=== PATIENT | female | born 1950 | race African-American/Black ===

== ENCOUNTER 2024-03-31 20:41 | Inpatient (IN) | payer BC, MEDICAID ==
[~2024-03-31] VITALS: Ht 170.2 cm; Wt 113.4 kg
[2024-04-01 00:17] LABS: BASOPHILS % 0.7 % (0.0-2.0); CALCIUM 8.7 mg/dL (8.7-10.4); EOSINOPHILS % 0.3 % (0.0-5.0); HEMATOCRIT. 43.6 % (36.0-48.0); HEMOGLOBIN. 13.8 g/dL (12.0-16.0); LYMPHOCYTES % 9.7 % (20.0-50.0); MEAN CORPUSCULAR HGB CONC 31.7 g/dL (31.0-37.0); MEAN CORPUSCULAR VOLUME 85.2 fL (81.0-99.0); MEAN PLATELET VOLUME 10.9 fl (7.4-10.4); MONOCYTES % 9.9 % (2.0-8.0); NEUTROPHILS % 79.4 % (40.0-76.0); PLATELET 240 x1000/uL (130-400); RED BLOOD CELL COUNT 5.11 mill/uL (4.2-5.4); RED CELL DISTRIBUTION WIDTH 18.4 % (11.6-14.6); WHITE BLOOD COUNT 8.7 x1000/uL (4.5-11.0)
[2024-04-01 00:22] LABS: CREATININE 1.5 mg/dL (0.6-1.0)
[2024-04-01] MEDS: MORPHINE SULFATE 4 MG/ML INJ (FOR IV/IM USE) IV STA (00:34)
[2024-04-01] MEDS: ONDANSETRON HCL 4MG/2ML INJ IV STA (00:35)
[2024-04-01] MEDS: SODIUM ZIRCONIUM CYCLOSILICATE 10GM/PACKET PO NR ×2 (03:07→12:22)
[2024-04-01] MEDS ORDERED: ACETAMINOPHEN 325MG TABLET PO PRN (10:00)
[2024-04-01] MEDS ORDERED: CLONIDINE 0.1MG TABLET PO PRN (10:00)
[2024-04-01] MEDS ORDERED: SODIUM CHLORIDE 0.9% 250 ML IV NR (10:00)
[2024-04-01] MEDS ORDERED: IPRATROPIUM/ALBUTEROL 0.5-3(2.5)MG/3ML NEB HHN PRN (10:00)
[2024-04-01] MEDS ORDERED: DOCUSATE SODIUM 100MG CAPSULE PO PRN (10:00)
[2024-04-01] MEDS ORDERED: NALOXONE HCL 0.4MG/ML VIAL IV PRN (10:15)
[2024-04-01] MEDS ORDERED: SODIUM POLYSTYRENE SULFONATE 15 G/60 ML BOT PO ONE (10:45)
[2024-04-01] MEDS: PANTOPRAZOLE SODIUM 40 MG/VIAL IV SCH (12:01)
[2024-04-01] MEDS: HYDROCODONE/ACETAMINOPHEN 5/325MG TABLET PO PRN (12:01)
[2024-04-01 12:08] LABS: BASOPHILS % 0.7 % (0.0-2.0); DIFFERENTIAL COMMENT 0; EOSINOPHILS % 0.2 % (0.0-5.0); HEMATOCRIT. 42.4 % (36.0-48.0); HEMOGLOBIN. 12.7 g/dL (12.0-16.0); LYMPHOCYTES % 10.2 % (20.0-50.0); MEAN CORPUSCULAR HEMOGLOBIN 26.4 pg (28.0-32.0); MEAN CORPUSCULAR VOLUME 87.9 fL (81.0-99.0); MEAN PLATELET VOLUME 10.9 fl (7.4-10.4); MONOCYTES % 9.2 % (2.0-8.0); NEUTROPHILS % 79.7 % (40.0-76.0); PLATELET 202 x1000/uL (130-400); RED BLOOD CELL COUNT 4.82 mill/uL (4.2-5.4); RED CELL DISTRIBUTION WIDTH 18.7 % (11.6-14.6); WHITE BLOOD COUNT 7.6 x1000/uL (4.5-11.0)
[2024-04-01] MEDS: DEXT 5%/0.45% NACL 1000ML 1,000 ML IV SCH (12:08)
[2024-04-01 12:11] LABS: CHLORIDE 108 mEq/L (98-107); POTASSIUM 4.9 mEq/L (3.5-5.1)
[2024-04-01] MEDS: APIXABAN 5 MG TABLET PO SCH (12:11)
[2024-04-01 12:12] LABS: CALCIUM 8.4 mg/dL (8.7-10.4); CARBON DIOXIDE 22 mEq/L (21-32); SODIUM 137 mEq/L (136-145)
[2024-04-01 12:17] LABS: CREATININE 1.6 mg/dL (0.6-1.0); D-DIMER 3.42 mg/L FEU (<0.50); GLUCOSE 74 mg/dL (70-105); INR 1.2; PROTHROMBIN TIME 13.3 sec (9.6-11.0)
[2024-04-01 12:18] LABS: LDL CHOLESTEROL 108 mg/dL (5-100); TRIGLYCERIDE 126 mg/dL (0-150); UREA NITROGEN BLOOD 23 mg/dL (9-23)
[2024-04-01 12:52] LABS: ALANINE AMINOTRANSFERASE 52 IU/L (10-49); ALBUMIN 2.9 g/dL (3.2-4.8); ASPARTATE AMINOTRANSFERASE 74 IU/L (<34)
[2024-04-01 12:53] LABS: BILIRUBIN DIRECT 0.5 mg/dL (<=3.0); CHOLESTEROL 158 mg/dL (<200); HDL CHOLESTEROL 23 mg/dL (>65); PHOSPHORUS 4.8 mg/dL (2.5-4.9)
[2024-04-01 12:55] LABS: T4 FREE 0.97 ng/dL (0.89-1.76); THYROID STIMULATING HORMONE 9.36 uIU/mL (0.55-4.78)
[2024-04-01] MEDS: ONDANSETRON HCL 4MG/2ML INJ IV PRN (13:14)
[2024-04-01 13:44] VITALS: BP 94/69; PULSE 95; RESP 20; TEMP 36.6404
[2024-04-01] MEDS: MIDODRINE HCL 5MG TABLET PO SCH (14:03)
[2024-04-01 16:00] VITALS: BP 91/50; PULSE 91; RESP 17; TEMP 36.50292; O2SAT 95
[2024-04-01 17:13] LABS: CREATINE KINASE MB FRACTION 0.6 ng/mL (0.5-3.6)
[2024-04-01 17:14] LABS: ETHANOL BLOOD < 10 mg/dL (<10); TROPONIN I HIGH SENSITIVITY 34 ng/L (3.0-34)
[2024-04-01 17:15] LABS: CREATINE KINASE 32 IU/L (34-145)
[2024-04-01] MEDS: SODIUM CHLORIDE 0.9% 250 ML IV NR (17:21)
[2024-04-01 20:00] VITALS: BP 124/35; PULSE 69; RESP 18; TEMP 36.22512; O2SAT 98
[2024-04-02] VITALS: BP 130/38; PULSE 54; RESP 18; TEMP 36.33624; O2SAT 100
[2024-04-02 01:02] LABS: CREATINE KINASE MB FRACTION < 0.5 ng/mL (0.5-3.6); TROPONIN I HIGH SENSITIVITY 32 ng/L (3.0-34)
[2024-04-02 01:03] LABS: CREATINE KINASE 47 IU/L (34-145)
[2024-04-02 04:00] VITALS: BP 114/64; PULSE 91; RESP 18; TEMP 36.28068; O2SAT 96
[2024-04-02 06:45] LABS: BASOPHILS % 0.9 % (0.0-2.0); DIFFERENTIAL COMMENT 0; EOSINOPHILS % 0.3 % (0.0-5.0); HEMATOCRIT. 39.2 % (36.0-48.0); HEMOGLOBIN. 12.1 g/dL (12.0-16.0); LYMPHOCYTES % 13.4 % (20.0-50.0); MEAN CORPUSCULAR HEMOGLOBIN 26.8 pg (28.0-32.0); MEAN CORPUSCULAR HGB CONC 30.8 g/dL (31.0-37.0); MEAN CORPUSCULAR VOLUME 86.9 fL (81.0-99.0); MEAN PLATELET VOLUME 10.9 fl (7.4-10.4); MONOCYTES % 13.2 % (2.0-8.0); NEUTROPHILS % 72.2 % (40.0-76.0); PLATELET 170 x1000/uL (130-400); RED BLOOD CELL COUNT 4.51 mill/uL (4.2-5.4); RED CELL DISTRIBUTION WIDTH 18.1 % (11.6-14.6); WHITE BLOOD COUNT 6.4 x1000/uL (4.5-11.0)
[2024-04-02 06:53] LABS: CHLORIDE 107 mEq/L (98-107); POTASSIUM 4.6 mEq/L (3.5-5.1); SODIUM 136 mEq/L (136-145)
[2024-04-02 06:54] LABS: CALCIUM 8.2 mg/dL (8.7-10.4); CARBON DIOXIDE 22 mEq/L (21-32)
[2024-04-02 06:59] LABS: CREATININE 1.9 mg/dL (0.6-1.0); GLUCOSE 105 mg/dL (70-105); UREA NITROGEN BLOOD 27 mg/dL (9-23)
[2024-04-02 07:02] LABS: PHOSPHORUS 4.5 mg/dL (2.5-4.9)
[2024-04-02 08:00] VITALS: BP 100/52; PULSE 89; RESP 18; TEMP 36.16956; O2SAT 97
[2024-04-02] MEDS: MIDODRINE HCL 5MG TABLET PO SCH (08:21)
[2024-04-02 12:00] VITALS: BP 90/50; PULSE 91; RESP 19; TEMP 35.78064; O2SAT 98
[2024-04-02] MEDS: ASPIRIN 81MG TABLET PO SCH (12:56)
[2024-04-02 14:11] LABS: CLARITY URINE CLOUDY (CLEAR); COLOR URINE DARK YELLOW (YELLOW); GLUCOSE URINE 2+ (NEGATIVE); KETONES URINE NEGATIVE (NEGATIVE); LEUKOCYTE ESTERASE URINE NEGATIVE (NEGATIVE); NITRITE URINE NEGATIVE (NEGATIVE); OCCULT BLOOD URINE TRACE (NEGATIVE); PROTEIN URINE 2+ (NEGATIVE); SPECIFIC GRAVITY URINE 1.019 (1.005-1.030)
[2024-04-02 14:29] LABS: BACTERIA URINE 4+; RBC URINE 0-2 /hpf (0-2); SQUAMOUS EPITHELIAL CELL URINE 1+ /lpf (RARE/1+); YEAST URINE NONE SEEN
[2024-04-02 14:33] LABS: *AMPHETAMINES SCREEN URINE NEGATIVE (NEGATIVE); *BARBITURATES SCREEN URINE NEGATIVE (NEGATIVE); *BENZODIAZEPINES SCREEN URINE NEGATIVE (NEGATIVE); *COCAINE SCREEN URINE NEGATIVE (NEGATIVE); CANNABINOID URINE SCREEN NEGATIVE (NEGATIVE); ECSTASY MDMA SCREEN URINE NEGATIVE (NEGATIVE); METHADONE URINE SCREEN NEGATIVE (NEGATIVE); OPIATES URINE SCREEN PRESUMPTIVE POSITIVE (NEGATIVE); PHENCYCLIDINE URINE SCREEN NEGATIVE (NEGATIVE)
[2024-04-02 16:00] VITALS: BP 92/53; PULSE 89; RESP 19; TEMP 36.05844; O2SAT 99
[2024-04-02] MEDS: ATORVASTATIN CALCIUM 40MG TABLET PO SCH (21:21)
[2024-04-03 07:27] LABS: BASOPHILS % 0.8 % (0.0-2.0); DIFFERENTIAL COMMENT 0; EOSINOPHILS % 0.8 % (0.0-5.0); HEMATOCRIT. 41.4 % (36.0-48.0); HEMOGLOBIN. 12.4 g/dL (12.0-16.0); LYMPHOCYTES % 9.6 % (20.0-50.0); MEAN CORPUSCULAR VOLUME 86.6 fL (81.0-99.0); MEAN PLATELET VOLUME 11.1 fl (7.4-10.4); MONOCYTES % 10.4 % (2.0-8.0); NEUTROPHILS % 78.4 % (40.0-76.0); PLATELET 186 x1000/uL (130-400); RED BLOOD CELL COUNT 4.78 mill/uL (4.2-5.4); WHITE BLOOD COUNT 6.4 x1000/uL (4.5-11.0)
[2024-04-03 07:33] LABS: INR 1.4
[2024-04-03 07:50] LABS: CARBON DIOXIDE 22 mEq/L (21-32); CHLORIDE 105 mEq/L (98-107); POTASSIUM 4.5 mEq/L (3.5-5.1); SODIUM 133 mEq/L (136-145)
[2024-04-03 07:51] LABS: CALCIUM 7.9 mg/dL (8.7-10.4)
[2024-04-03 07:55] LABS: GLUCOSE 101 mg/dL (70-105); UREA NITROGEN BLOOD 30 mg/dL (9-23)
[2024-04-03 07:57] LABS: ALANINE AMINOTRANSFERASE 48 IU/L (10-49); ALBUMIN 2.7 g/dL (3.2-4.8); ASPARTATE AMINOTRANSFERASE 77 IU/L (<34)
[2024-04-03 07:58] LABS: BILIRUBIN DIRECT 0.5 mg/dL (<=3.0); BILIRUBIN TOTAL 0.9 mg/dL (0.1-1.0); PHOSPHORUS 3.5 mg/dL (2.5-4.9); PROTEIN TOTAL 5.8 g/dL (6.0-8.3)
[2024-04-03 08:00] VITALS: BP 90/44; PULSE 92; RESP 19; TEMP 36.05844; O2SAT 98
[2024-04-03] MEDS: FAMOTIDINE 20MG/2ML VIAL IV SCH (08:44)
[2024-04-03 12:00] VITALS: BP 99/58; PULSE 80; RESP 19; TEMP 36.05844; O2SAT 97
[2024-04-03 16:00] VITALS: BP 105/61; PULSE 96; RESP 19; TEMP 36.05844; O2SAT 98
[2024-04-03 20:00] VITALS: BP 152/125; PULSE 100; RESP 19; TEMP 36.89184; O2SAT 98
[2024-04-04] VITALS: BP 155/65; PULSE 66; RESP 19; TEMP 37.2252; O2SAT 97
[2024-04-04 04:00] VITALS: BP 120/80; PULSE 136; RESP 19; TEMP 37.72524; O2SAT 98
[2024-04-04 06:31] LABS: CHLORIDE 104 mEq/L (98-107); POTASSIUM 4.6 mEq/L (3.5-5.1); SODIUM 133 mEq/L (136-145)
[2024-04-04 06:32] LABS: CARBON DIOXIDE 21 mEq/L (21-32)
[2024-04-04 06:33] LABS: CALCIUM 7.8 mg/dL (8.7-10.4)
[2024-04-04 06:36] LABS: BASOPHILS % 0.4 % (0.0-2.0); EOSINOPHILS % 0.1 % (0.0-5.0); HEMATOCRIT. 42.8 % (36.0-48.0); HEMOGLOBIN. 13.3 g/dL (12.0-16.0); LYMPHOCYTES % 8.1 % (20.0-50.0); MEAN CORPUSCULAR HEMOGLOBIN 26.5 pg (28.0-32.0); MEAN CORPUSCULAR HGB CONC 31.1 g/dL (31.0-37.0); MEAN CORPUSCULAR VOLUME 85.1 fL (81.0-99.0); MEAN PLATELET VOLUME 10.8 fl (7.4-10.4); MONOCYTES % 9.1 % (2.0-8.0); NEUTROPHILS % 82.3 % (40.0-76.0); PLATELET 216 x1000/uL (130-400); RED BLOOD CELL COUNT 5.03 mill/uL (4.2-5.4); WHITE BLOOD COUNT 9.2 x1000/uL (4.5-11.0)
[2024-04-04 06:37] LABS: CREATININE 2.1 mg/dL (0.6-1.0); GLUCOSE 113 mg/dL (70-105)
[2024-04-04 06:38] LABS: UREA NITROGEN BLOOD 32 mg/dL (9-23)
[2024-04-04 06:39] LABS: ALANINE AMINOTRANSFERASE 47 IU/L (10-49); ALBUMIN 2.8 g/dL (3.2-4.8)
[2024-04-04 06:40] LABS: ASPARTATE AMINOTRANSFERASE 68 IU/L (<34); BILIRUBIN TOTAL 1.5 mg/dL (0.1-1.0); PROTEIN TOTAL 6.1 g/dL (6.0-8.3)
[2024-04-04 08:00] VITALS: BP 128/79; PULSE 105; RESP 20; TEMP 36.44736; O2SAT 97
[2024-04-04 12:00] VITALS: BP 120/66; PULSE 97; RESP 20; TEMP 36.114; O2SAT 96
[2024-04-04 16:00] VITALS: BP 110/69; PULSE 97; RESP 20; TEMP 36.33624; O2SAT 96
[2024-04-04 20:00] VITALS: BP 140/80; PULSE 99; RESP 19; TEMP 36.55848; O2SAT 0
[2024-04-04] MEDS: LORAZEPAM 2MG/ML INJ IV PRN (22:09)
[2024-04-05] VITALS: BP 142/79; PULSE 92; RESP 19; TEMP 36.44736; O2SAT 98
[2024-04-05 08:00] VITALS: BP 107/58; PULSE 96; RESP 18; TEMP 36.72516; O2SAT 100
[2024-04-05] MEDS: CEFTRIAXONE 1GM/50ML 50 ML IV SCH (10:00)
[2024-04-05 11:49] LABS: BASOPHILS % 0.3 % (0.0-2.0); DIFFERENTIAL COMMENT 0; EOSINOPHILS % 0.3 % (0.0-5.0); HEMATOCRIT. 40.4 % (36.0-48.0); HEMOGLOBIN. 12.4 g/dL (12.0-16.0); LYMPHOCYTES % 13.2 % (20.0-50.0); MEAN CORPUSCULAR HEMOGLOBIN 26.5 pg (28.0-32.0); MEAN CORPUSCULAR HGB CONC 30.7 g/dL (31.0-37.0); MEAN CORPUSCULAR VOLUME 86.3 fL (81.0-99.0); MEAN PLATELET VOLUME 10.8 fl (7.4-10.4); MONOCYTES % 12.5 % (2.0-8.0); NEUTROPHILS % 73.7 % (40.0-76.0); PLATELET 183 x1000/uL (130-400); RED BLOOD CELL COUNT 4.69 mill/uL (4.2-5.4); RED CELL DISTRIBUTION WIDTH 18.9 % (11.6-14.6); WHITE BLOOD COUNT 7.8 x1000/uL (4.5-11.0)
[2024-04-05 12:00] VITALS: BP 108/64; PULSE 98; RESP 18; TEMP 36.3918; O2SAT 98
[2024-04-05 12:01] LABS: CARBON DIOXIDE 22 mEq/L (21-32); CHLORIDE 106 mEq/L (98-107); POTASSIUM 4.7 mEq/L (3.5-5.1); SODIUM 133 mEq/L (136-145)
[2024-04-05 12:02] LABS: CALCIUM 7.7 mg/dL (8.7-10.4)
[2024-04-05 12:06] LABS: CREATININE 1.7 mg/dL (0.6-1.0)
[2024-04-05 12:07] LABS: GLUCOSE 105 mg/dL (70-105); UREA NITROGEN BLOOD 32 mg/dL (9-23)
[2024-04-05 12:08] LABS: ALANINE AMINOTRANSFERASE 41 IU/L (10-49); ALBUMIN 2.6 g/dL (3.2-4.8); ASPARTATE AMINOTRANSFERASE 57 IU/L (<34)
[2024-04-05 12:09] LABS: BILIRUBIN DIRECT 0.8 mg/dL (<=3.0); BILIRUBIN TOTAL 1.4 mg/dL (0.1-1.0); CREATINE KINASE 49 IU/L (34-145); PHOSPHORUS 2.8 mg/dL (2.5-4.9); PROTEIN TOTAL 5.7 g/dL (6.0-8.3)
[2024-04-05 16:00] VITALS: BP 108/71; PULSE 99; RESP 18; TEMP 36.44736; O2SAT 98
[2024-04-05 20:00] VITALS: BP 119/81; PULSE 103; RESP 18; TEMP 36.50292; O2SAT 98
[2024-04-06] VITALS: BP 124/68; PULSE 101; RESP 20; TEMP 36.3918; O2SAT 99
[2024-04-06 04:00] VITALS: BP 98/62; PULSE 102; RESP 18; TEMP 36.61404; O2SAT 100
[2024-04-06 06:22] LABS: CHLORIDE 106 mEq/L (98-107); POTASSIUM 4.7 mEq/L (3.5-5.1); SODIUM 133 mEq/L (136-145)
[2024-04-06 06:24] LABS: CALCIUM 7.6 mg/dL (8.7-10.4); CARBON DIOXIDE 21 mEq/L (21-32)
[2024-04-06 06:30] LABS: ALANINE AMINOTRANSFERASE 36 IU/L (10-49); ASPARTATE AMINOTRANSFERASE 53 IU/L (<34); CREATININE 1.5 mg/dL (0.6-1.0); GLUCOSE 117 mg/dL (70-105); UREA NITROGEN BLOOD 28 mg/dL (9-23)
[2024-04-06 06:31] LABS: ALBUMIN 2.7 g/dL (3.2-4.8)
[2024-04-06 06:32] LABS: BILIRUBIN DIRECT 0.9 mg/dL (<=3.0); BILIRUBIN TOTAL 1.4 mg/dL (0.1-1.0); PHOSPHORUS 2.6 mg/dL (2.5-4.9); PROTEIN TOTAL 5.6 g/dL (6.0-8.3)
[2024-04-06 06:41] LABS: BASOPHILS % 0.7 % (0.0-2.0); DIFFERENTIAL COMMENT 0; EOSINOPHILS % 0.8 % (0.0-5.0); HEMOGLOBIN. 12.6 g/dL (12.0-16.0); LYMPHOCYTES % 13.8 % (20.0-50.0); MEAN CORPUSCULAR HEMOGLOBIN 26.7 pg (28.0-32.0); MEAN CORPUSCULAR HGB CONC 30.7 g/dL (31.0-37.0); MEAN PLATELET VOLUME 10.6 fl (7.4-10.4); NEUTROPHILS % 72.7 % (40.0-76.0); PLATELET 174 x1000/uL (130-400); RED BLOOD CELL COUNT 4.72 mill/uL (4.2-5.4); RED CELL DISTRIBUTION WIDTH 18.9 % (11.6-14.6); WHITE BLOOD COUNT 6.5 x1000/uL (4.5-11.0)
[2024-04-06 08:00] VITALS: BP 98/71; RESP 20; TEMP 36.72516; O2SAT 98
[2024-04-06 12:00] VITALS: BP 99/65; PULSE 100; RESP 18; TEMP 36.114; O2SAT 96
[2024-04-06] MEDS: ACETAMINOPHEN 325MG TABLET PO PRN (14:05)
[2024-04-06 16:00] VITALS: BP 131/68; PULSE 93; RESP 18; TEMP 35.16948; O2SAT 98
[2024-04-06] MEDS: DEXT 5%/0.9% NACL 1,000 ML IV SCH (16:11)
[2024-04-06 20:00] VITALS: BP 132/60; PULSE 97; RESP 19; TEMP 35.39172; O2SAT 92
[2024-04-07] VITALS: BP 145/84; PULSE 102; RESP 22; TEMP 35.66952; O2SAT 92
[2024-04-07 04:00] VITALS: BP 143/86; PULSE 112; RESP 20; TEMP 36.114; O2SAT 97
[2024-04-07 07:29] LABS: CHLORIDE 107 mEq/L (98-107); POTASSIUM 4.8 mEq/L (3.5-5.1); SODIUM 134 mEq/L (136-145)
[2024-04-07 07:31] LABS: CARBON DIOXIDE 21 mEq/L (21-32)
[2024-04-07 07:32] LABS: CALCIUM 7.7 mg/dL (8.7-10.4)
[2024-04-07 07:33] LABS: UREA NITROGEN BLOOD 28 mg/dL (9-23)
[2024-04-07 07:35] LABS: BASOPHILS % 0.7 % (0.0-2.0); EOSINOPHILS % 0.5 % (0.0-5.0); HEMATOCRIT. 39.6 % (36.0-48.0); HEMOGLOBIN. 12.5 g/dL (12.0-16.0); LYMPHOCYTES % 10.7 % (20.0-50.0); MEAN CORPUSCULAR HEMOGLOBIN 26.7 pg (28.0-32.0); MEAN CORPUSCULAR HGB CONC 31.7 g/dL (31.0-37.0); MEAN CORPUSCULAR VOLUME 84.5 fL (81.0-99.0); MEAN PLATELET VOLUME 10.3 fl (7.4-10.4); MONOCYTES % 12.8 % (2.0-8.0); NEUTROPHILS % 75.3 % (40.0-76.0); PLATELET 194 x1000/uL (130-400); RED BLOOD CELL COUNT 4.69 mill/uL (4.2-5.4); RED CELL DISTRIBUTION WIDTH 19.1 % (11.6-14.6); WHITE BLOOD COUNT 7.4 x1000/uL (4.5-11.0)
[2024-04-07 07:36] LABS: CREATININE 1.5 mg/dL (0.6-1.0)
[2024-04-07 07:37] LABS: ALANINE AMINOTRANSFERASE 43 IU/L (10-49); GLUCOSE 101 mg/dL (70-105)
[2024-04-07 07:38] LABS: ALBUMIN 2.8 g/dL (3.2-4.8); ASPARTATE AMINOTRANSFERASE 78 IU/L (<34)
[2024-04-07 07:39] LABS: BILIRUBIN TOTAL 1.5 mg/dL (0.1-1.0); PHOSPHORUS 2.5 mg/dL (2.5-4.9); PROTEIN TOTAL 5.8 g/dL (6.0-8.3)
[2024-04-07 08:00] VITALS: BP 130/73; PULSE 109; RESP 20; TEMP 36.55848; O2SAT 99
[2024-04-07 12:00] VITALS: BP 120/65; PULSE 110; RESP 20; TEMP 36.78072; O2SAT 99
[2024-04-07] MEDS: DILTIAZEM HCL 30MG TABLET PO SCH (14:04)
[2024-04-07] MEDS: HYDROCODONE/ACETAMINOPHEN 10/325MG TABLET PO PRN (14:04)
[2024-04-07 16:00] VITALS: BP 110/72; PULSE 102; RESP 20; TEMP 36.61404; O2SAT 96
[2024-04-07] MEDS: MORPHINE SULFATE 2 MG/ML INJ (NOT FOR IM USE) IV PRN (17:57)
[2024-04-07 20:00] VITALS: BP 154/73; PULSE 109; RESP 20; TEMP 36.33624; O2SAT 97
[2024-04-08] VITALS (7 sets, daily range): BP systolic 91–137; BP diastolic 50–82; PULSE 63–137; RESP 18–21; TEMP 34.725–36.3918; O2SAT 96–100
[2024-04-08 09:27] LABS: CARBON DIOXIDE 18 mEq/L (21-32); CHLORIDE 108 mEq/L (98-107); POTASSIUM 5.7 mEq/L (3.5-5.1); SODIUM 133 mEq/L (136-145)
[2024-04-08 09:28] LABS: CALCIUM 7.7 mg/dL (8.7-10.4)
[2024-04-08 09:32] LABS: CREATININE 1.8 mg/dL (0.6-1.0); GLUCOSE 98 mg/dL (70-105)
[2024-04-08 09:33] LABS: UREA NITROGEN BLOOD 25 mg/dL (9-23)
[2024-04-08 09:34] LABS: ALANINE AMINOTRANSFERASE 70 IU/L (10-49); ALBUMIN 2.5 g/dL (3.2-4.8)
[2024-04-08 09:35] LABS: ASPARTATE AMINOTRANSFERASE 216 IU/L (<34); BILIRUBIN DIRECT 0.7 mg/dL (<=3.0); BILIRUBIN TOTAL 1.2 mg/dL (0.1-1.0); PHOSPHORUS 3.2 mg/dL (2.5-4.9); PROTEIN TOTAL 5.7 g/dL (6.0-8.3)
[2024-04-08 09:47] LABS: BASOPHILS % 0.9 % (0.0-2.0); DIFFERENTIAL COMMENT 0; EOSINOPHILS % 0.5 % (0.0-5.0); HEMOGLOBIN. 12.7 g/dL (12.0-16.0); LYMPHOCYTES % 11.2 % (20.0-50.0); MEAN CORPUSCULAR HEMOGLOBIN 26.6 pg (28.0-32.0); MEAN CORPUSCULAR HGB CONC 30.3 g/dL (31.0-37.0); MEAN CORPUSCULAR VOLUME 87.9 fL (81.0-99.0); MEAN PLATELET VOLUME 9.9 fl (7.4-10.4); MONOCYTES % 13.3 % (2.0-8.0); NEUTROPHILS % 74.1 % (40.0-76.0); PLATELET 164 x1000/uL (130-400); RED BLOOD CELL COUNT 4.78 mill/uL (4.2-5.4); RED CELL DISTRIBUTION WIDTH 19.8 % (11.6-14.6); WHITE BLOOD COUNT 8.3 x1000/uL (4.5-11.0)
[2024-04-08] MEDS: AMIODARONE HCL 900 MG in DEXT 5% WATER 500 ML IV SCH (23:00)
[2024-04-09] VITALS (14 sets, daily range): BP systolic 83–130; BP diastolic 52–84; PULSE 98–135; RESP 17–30; TEMP 35.5584–36.72516; O2SAT 96–100
[2024-04-09] MEDS ORDERED: SODIUM POLYSTYRENE SULFONATE 15 G/60 ML BOT PO ONE (11:00)
[2024-04-09] MEDS: ALBUTEROL (0.083%) 2.5MG/3ML NEB HHN NR (13:26)
[2024-04-09] MEDS: SODIUM ZIRCONIUM CYCLOSILICATE 10GM/PACKET PO NR (13:36)
[2024-04-09] MEDS: CITRIC ACID/SODIUM CITRATE SOLN 30ML UDC PO SCH (13:37)
[2024-04-09] MEDS: SODIUM POLYSTYRENE SULFONATE 15 G/60 ML BOT PO NR (20:26)
[2024-04-10] VITALS (12 sets, daily range): BP systolic 82–124; BP diastolic 52–83; PULSE 94–115; RESP 18–26; TEMP 36.50292–37.39188; O2SAT 93–100
[2024-04-10] MEDS ORDERED: LORAZEPAM 2MG/ML INJ IV PRN (09:30)
[2024-04-11] VITALS (69 sets, daily range): BP systolic 68–145; BP diastolic 42–108; PULSE 83–110; RESP 12–26; TEMP 36.114–37.72524; O2SAT 97–100
[2024-04-11] MEDS: NALOXONE HCL 0.4MG/ML VIAL IV PRN (08:03)
[2024-04-11] MEDS: SODIUM CHLORIDE 0.9% 500 ML IV SCH (08:18)
[2024-04-11] MEDS ORDERED: PHENYLEPHRINE 50MG/250ML PMX 250 ML IV PRN (08:30)
[2024-04-11] MEDS: SODIUM CHLORIDE 0.9% 500 ML IV ONE (09:30)
[2024-04-11] MEDS ORDERED: SODIUM CHLORIDE 0.9% 500 ML IV ONE (09:30)
[2024-04-11 09:53] LABS: BG BASE EXCESS -7.3 mmol/L (-2.0-3.0); BG CARBOXYHEMOGLOBIN 0.4 % (0.5-1.5); BG DEOXYHEMOGLOBIN 4.4 % (0.0-5.0); BG FRACTION INSPIRED OXYGEN 21; BG HCO3 ACT 17.9 mmol/L (21.0-28.0); BG METHEMOGLOBIN 0.3 % (0.5-1.5); BG OXYGEN SATURATION 95.6 % (94.0-98.0); BG OXYHEMOGLOBIN 94.9 % (94.0-98.0); BG PCO2 34.9 mmHg (32.0-45.0); BG PH 7.327 (7.350-7.450); BG PO2 84.6 mmHg (83.0-108.0); BG SAMPLE SITE RIGHT RADIAL; BG TOTAL HEMOGLOBIN 11.7 g/dL (12.0-16.0); BG VENT MODE ROOM AIR
[2024-04-11] MEDS: NOREPINEPHRINE 32 MG in DEXT 5% WATER 218 ML IV PRN (09:58)
[2024-04-11 12:36] LABS: POTASSIUM 5.3 mEq/L (3.5-5.1)
[2024-04-11 12:37] LABS: CALCIUM 6.8 mg/dL (8.7-10.4)
[2024-04-11 12:52] LABS: BASOPHILS % 0.4 % (0.0-2.0); EOSINOPHILS % 0.2 % (0.0-5.0); HEMATOCRIT. 36.9 % (36.0-48.0); HEMOGLOBIN. 11.7 g/dL (12.0-16.0); LYMPHOCYTES % 9.4 % (20.0-50.0); MEAN CORPUSCULAR HEMOGLOBIN 26.9 pg (28.0-32.0); MEAN CORPUSCULAR HGB CONC 31.7 g/dL (31.0-37.0); MEAN PLATELET VOLUME 10.6 fl (7.4-10.4); MONOCYTES % 11.3 % (2.0-8.0); NEUTROPHILS % 78.7 % (40.0-76.0); PLATELET 245 x1000/uL (130-400); RED BLOOD CELL COUNT 4.34 mill/uL (4.2-5.4); RED CELL DISTRIBUTION WIDTH 19.6 % (11.6-14.6); WHITE BLOOD COUNT 10.7 x1000/uL (4.5-11.0)
[2024-04-11 12:54] LABS: CREATININE 3.6 mg/dL (0.6-1.0)
[2024-04-11] MEDS: MORPHINE SULFATE 2 MG/ML INJ (NOT FOR IM USE) IV PRN (14:26)
[2024-04-11] MEDS: RISPERIDONE 0.5MG TABLET PO SCH (14:28)
[2024-04-11] MEDS: PHENYLEPHRINE 100 MG in DEXT 5% WATER 240 ML IV PRN (19:00)
[2024-04-12] VITALS (59 sets, daily range): BP systolic 59–132; BP diastolic 37–80; PULSE 90–113; RESP 13–25; TEMP 36.33624–37.00296; O2SAT 94–100
[2024-04-12 05:39] LABS: CALCIUM 6.9 mg/dL (8.7-10.4)
[2024-04-12 05:43] LABS: CREATININE 3.6 mg/dL (0.6-1.0)
[2024-04-12 06:07] LABS: BASOPHILS % 0.4 % (0.0-2.0); EOSINOPHILS % 0.2 % (0.0-5.0); HEMATOCRIT. 36.1 % (36.0-48.0); HEMOGLOBIN. 11.5 g/dL (12.0-16.0); LYMPHOCYTES % 11.9 % (20.0-50.0); MEAN CORPUSCULAR HEMOGLOBIN 27.2 pg (28.0-32.0); MEAN CORPUSCULAR HGB CONC 31.9 g/dL (31.0-37.0); MEAN CORPUSCULAR VOLUME 85.3 fL (81.0-99.0); MEAN PLATELET VOLUME 10.3 fl (7.4-10.4); MONOCYTES % 11.3 % (2.0-8.0); NEUTROPHILS % 76.2 % (40.0-76.0); PLATELET 226 x1000/uL (130-400); RED BLOOD CELL COUNT 4.23 mill/uL (4.2-5.4); RED CELL DISTRIBUTION WIDTH 19.2 % (11.6-14.6); WHITE BLOOD COUNT 9.4 x1000/uL (4.5-11.0)
[2024-04-12] MEDS: MORPHINE SULFATE 250 MG in DEXT 5% WATER 225 ML IV PRN (13:39)
[2024-04-13] VITALS: BP 57/32; PULSE 50; RESP 10; TEMP 33.72492; O2SAT 94
[2024-04-13 09:07] LABS: CA 27.29 33.4 U/mL (0.0-38.6)
== END 2024-04-13 04:05 | DRG 64 ==
LOC: ER 20:41 → 5WST 04-01 02:33 → EDBEDREQTM 04-01 02:38 → EDBEDREQ 04-01 02:38 → 7EST 04-01 12:44 → 5EST 04-08 22:38 → MICUNO 04-11 08:45 → MICUSO 04-12 04:00 → 6WST 04-12 15:39
PROVIDERS: ADMIT Internal Medicine; ATTEND Internal Medicine
PROC: 4A00X4Z Measurement of Central Nervous Electrical Activity, External Approach (ICD-10-PCS; principal; 2024-04-05)
PROC: 02HV33Z Insertion of Infusion Device into Superior Vena Cava, Percutaneous Approach (ICD-10-PCS; 2024-04-11)
PROC: B548ZZA Ultrasonography of Superior Vena Cava, Guidance (ICD-10-PCS; 2024-04-11)
DX: I63.9 Cerebral infarction, unspecified (principal); G92.8 Other toxic encephalopathy; Z68.41 Body mass index [BMI] 40.0-44.9, adult; C78.7 Secondary malignant neoplasm of liver and intrahepatic bile duct; E87.1 Hypo-osmolality and hyponatremia; C79.51 Secondary malignant neoplasm of bone; E78.5 Hyperlipidemia, unspecified; Z20.822 Contact with and (suspected) exposure to COVID-19; D25.9 Leiomyoma of uterus, unspecified; R14.0 Abdominal distension (gaseous); C50.912 Malignant neoplasm of unspecified site of left female breast; Z66 Do not resuscitate; I10 Essential (primary) hypertension; I48.91 Unspecified atrial fibrillation; E66.01 Morbid (severe) obesity due to excess calories; E87.5 Hyperkalemia; I69.30 Unspecified sequelae of cerebral infarction; Z79.01 Long term (current) use of anticoagulants
CPT/HCPCS: 36415; 36573; 36600; 70551; 71045; 71250; 72170; 72192; 73551; 73590; 73700; 74176; 76770; 78580; 80048; 80053; 80061; 80076; 80305; 80320; 81003; 82375; 82378; 82550; 82553; 82805; 83605; 83735; 83880; 84100; 84145; 84439; 84443; 84480; 84484; 85025; 85379; 86300; 87426; 93005; 93306; 93880; 93970; 94640; 95816; 97110; 97162; 97166; 99285; A6261; C1725; G0378; J0282; J0696; J2060; J2270; J2310; J2405; J2470; J3490; J7042; J7060; G0480